=== PATIENT | female | born 1995 | race Hispanic/Latino ===

== ENCOUNTER 2024-01-27 11:40 | Emergency (ER) | payer SELFPAY ==
[2024-01-27 11:50] VITALS: BP 101/75
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
[2024-01-27] MEDS: TYLENOL 1000 MG PO (13:23)
[2024-01-27] MEDS: MOTRIN 600 MG PO (13:24)
== END 2024-01-27 14:59 | disposition home or self-care (01) ==
LOC: EMR 11:40
PROVIDERS: EMERGENCY PHYSICIAN Emergency Medicine
DX: R07.89 Other chest pain (principal); V89.2XXA Person injured in unspecified motor-vehicle accident, traffic, initial encounter
CPT/HCPCS: 99284; 71046; 93005